=== PATIENT | female | born 1940 | race Caucasian/White ===

== ENCOUNTER → 2017-10-11 | Outpatient (CLI) | payer MEDICARE, OTHER | END | disposition home or self-care (01) | LOC: CFH 10:20 | PROVIDERS: ATTEND Licensed Practical Nurse | DX: Z13.820 Encounter for screening for osteoporosis (principal); N95.8 Other specified menopausal and perimenopausal disorders | CPT/HCPCS: 77080 ==

== ENCOUNTER 2020-10-07 08:30 | Outpatient (CLI) | payer MEDICARE, OTHER ==
[2020-10-07] MEDS ORDERED: ASPI81TA45 PO (09:18)
[2020-10-07] MEDS ORDERED: TURM500C4 PO (09:18)
[2020-10-07] MEDS ORDERED: SIMV10TA18 PO (09:18)
[2020-10-07] MEDS ORDERED: [UNRECOGNIZED DRUG - OTHER] PO (09:18)
[2020-10-07] MEDS ORDERED: CELE200C PO (09:18)
[2020-10-07] MEDS ORDERED: CA C1TAB62 PO (09:18)
[2020-10-07] MEDS ORDERED: L.AC1CAP6 PO (09:18)
[2020-10-07] MEDS ORDERED: [UNRECOGNIZED DRUG - OTHER] (09:18)
[2020-10-07] MEDS ORDERED: METH500C3 PO (09:18)
[2020-10-07] MEDS ORDERED: CEPH-376 PO (09:18)
[2020-10-07] MEDS ORDERED: [UNRECOGNIZED DRUG - OTHER] PO (09:18)
[2020-10-07] MEDS ORDERED: HYDR25TA6 PO (09:18)
[2020-10-07 09:43] LABS: ALBUMIN 3.7 g/dL (3.4-5.0); ANION GAP 7 mmol/L (5-15); CALCIUM 9.8 mg/dL (8.5-10.1); CHLORIDE 104 mmol/L (98-107)
[2020-10-07 09:47] LABS: ALANINE AMINOTRANSFERASE 25 U/L (12-78); ALKALINE PHOSPHATASE 72 U/L (45-117); BILIRUBIN,TOTAL 0.4 mg/dL (0.2-1.0); CREATININE 1.01 mg/dL (0.55-1.02); TOTAL PROTEIN 7.2 g/dL (6.4-8.2)
== END 2020-10-07 23:59 | disposition home or self-care (01) ==
LOC: STAR 08:30
PROVIDERS: ATTEND Internal Medicine Gastroenterology
DX: Z01.812 Encounter for preprocedural laboratory examination (principal); Z20.822 Contact with and (suspected) exposure to COVID-19; K63.5 Polyp of colon
CPT/HCPCS: 36415; 80053; 93005; U0003

== ENCOUNTER 2020-10-13 05:39 | Day surgery (SDC) | payer MEDICARE, OTHER ==
[~2020-10-13] VITALS: Ht 154.9 cm; Wt 94.0 kg
[~2020-10-13 05:39] MED LIST: ASPI81TA45 PO; CA C1TAB62 PO; CELE200C PO; CEPH-376 PO; HYDR25TA6 PO; L.AC1CAP6 PO; METH500C3 PO; SIMV10TA18 PO; TURM500C4 PO; [UNRECOGNIZED DRUG - OTHER]; [UNRECOGNIZED DRUG - OTHER] PO; [UNRECOGNIZED DRUG - OTHER] PO
[2020-10-13 06:25] VITALS: BP 144/83
[2020-10-13] MEDS ORDERED: CHLORHEXIDINE 15 ML UDC PO ONE (06:30)
[2020-10-13] MEDS ORDERED: LACTATED RINGERS 1,000 ML IV SCH (06:30)
== END 2020-10-13 09:14 | disposition home or self-care (01) ==
LOC: OUT 05:39
PROVIDERS: ATTEND Internal Medicine Gastroenterology
DX: K63.5 Polyp of colon (principal); I10 Essential (primary) hypertension; E78.5 Hyperlipidemia, unspecified; Z79.899 Other long term (current) drug therapy; Z98.890 Other specified postprocedural states; Z96.651 Presence of right artificial knee joint; Z79.82 Long term (current) use of aspirin; Z72.89 Other problems related to lifestyle; Z82.49 Family history of ischemic heart disease and other diseases of the circulatory system
CPT/HCPCS: 45331; J7120

== ENCOUNTER → 2020-11-14 | Outpatient (CLI) | payer MEDICARE, OTHER ==
[~2020-11-14] MED LIST changes: +MSM PO
== END | disposition home or self-care (01) ==
LOC: STAR 14:00
PROVIDERS: ATTEND Internal Medicine Gastroenterology
DX: Z20.822 Contact with and (suspected) exposure to COVID-19 (principal); K63.5 Polyp of colon
CPT/HCPCS: U0005; U0003

== ENCOUNTER 2020-11-18 08:31 | Day surgery (SDC) | payer MEDICARE, OTHER ==
[~2020-11-18] VITALS: Ht 154.9 cm; Wt 92.1 kg
[2020-11-18 09:11] VITALS: BP 125/73
[2020-11-18] MEDS ORDERED: CHLORHEXIDINE 15 ML UDC ONE (09:16)
[2020-11-18] MEDS ORDERED: LACTATED RINGERS 1,000 ML IV SCH (09:30)
[2020-11-18] MEDS ORDERED: CHLORHEXIDINE 15 ML UDC PO ONE (09:30)
[2020-11-18] MEDS ORDERED: PROPOFOL 50 ML ONE (10:26)
[2020-11-18] MEDS ORDERED: ONDANSETRON 2MG/ML, 2ML IVPush PRN (10:30)
[2020-11-18] MEDS ORDERED: EPHEDRINE 50 MG/ML, 1ML IM PRN (10:30)
[2020-11-18] MEDS ORDERED: EPHEDRINE 50 MG/ML, 1ML IVPush PRN (10:30)
[2020-11-18] MEDS ORDERED: LABETALOL 5MG/ML, 20ML IV PRN (10:30)
[2020-11-18] MEDS ORDERED: PROMETHAZINE 25 MG/ML, 1ML IVPush PRN (10:30)
[2020-11-18] MEDS ORDERED: FENTANYL PF 100 MCG/2ML IV PRN (10:30)
[2020-11-18] MEDS ORDERED: DIAZEPAM 5 MG/ML, 2ML IVPush PRN (10:30)
[2020-11-18] MEDS ORDERED: DIPHENHYDRAMINE 50 MG/ML, 1ML IVPush PRN (10:30)
[2020-11-18] MEDS ORDERED: PROPOFOL 10 MG/ML, 20ML ONE (11:18)
== END 2020-11-18 12:15 | disposition home or self-care (01) ==
LOC: OUT 08:31
PROVIDERS: ATTEND Internal Medicine Gastroenterology
DX: D12.7 Benign neoplasm of rectosigmoid junction (principal)
CPT/HCPCS: 45335; 45338; 88305; J2704; J7120